=== PATIENT | female | born 1990 | race Caucasian/White ===

== ENCOUNTER → 2020-10-08 11:35 | Outpatient (CLI) | payer SELFPAY | PROVIDERS: Visit Provider Physician Assistant | DX: R30.0 Dysuria (principal) | CPT/HCPCS: 87086 ==

== ENCOUNTER → 2024-08-30 18:44 | Outpatient (ROUT) | payer SELFPAY ==
[2024-08-31 15:10] LABS: Strep Grp B PCR NEG for Grp B Strep
== END ==
LOC: LAB 18:44
PROVIDERS: Visit Provider Advanced Practice Midwife
DX: Z36.85 Encounter for antenatal screening for Streptococcus B (principal)
CPT/HCPCS: 87653